=== PATIENT | female | born 1980 | race Asian ===

== ENCOUNTER 2024-01-30 17:41 | Emergency (ER) | payer OTHER ==
[2024-01-30 17:52] VITALS: TEMP 97.5; BMI 19.8
[2024-01-30] MEDS ORDERED: ACETAMINOPHEN INJECTION 100 ML ONE (18:25)
[2024-01-30] MEDS ORDERED: MAG HYDROX/AL HYDROX/SIMETH 30 ML UNIT-DOSE CUP ONE (18:25)
[2024-01-30] MEDS ORDERED: FAMOTIDINE 20 MG/50 ML IVPB 20 MG/50 ML MG IVPB ONE (18:25)
[2024-01-30] MEDS: MAG HYDROX/AL HYDROX/SIMETH 30 ML UNIT-DOSE CUP PO ONE (18:47)
[2024-01-30] MEDS: ACETAMINOPHEN 1000 MG/100 ML BAG IVPB ONE (18:47)
[2024-01-30 18:53] LABS: HCG,QUALITATIVE URINE Negative
[2024-01-30 18:53] LABS: HEMATOCRIT 40.1 % (32.4-45.2); HEMOGLOBIN 13.2 G/dL (10.7-15.3); MCHC 32.9 g/dl (32.0-36.0); MEAN CELL VOLUME 90.9 fl (80-96); MEAN PLT VOLUME 8.1 fl (7.5-11.1); PLATELET COUNT 279.2 10^3/uL (134-434); RBC 4.41 10^6/uL (3.60-5.2); RDW 13.7 % (11.6-15.6)
[2024-01-30 18:58] LABS: INR 0.94 (0.83-1.09); PROTHROMBIN TIME (PATIENT) 10.7 SEC (9.7-13.0)
[2024-01-30 19:01] LABS: ACTIVATED PTT 37.2 SECONDS (25.2-36.5)
[2024-01-30] MEDS: FAMOTIDINE 20 MG/50 ML IVPB 20 MG/50 ML MG IVPB ONE (19:02)
[2024-01-30 19:07] LABS: ALBUMIN 4.4 g/dl (3.4-5.0); ALK PHOS 40 U/L (45-117); ANION GAP 5 mmol/L (4-13); BILIRUBIN,TOTAL 0.5 mg/dl (0.2-1); CALCIUM 9.6 mg/dl (8.5-10.1); CHLORIDE 103 mmol/L (98-107); CO2 29 mmol/L (21-32); CREATININE 0.9 mg/dl (0.6-1.3); GLUCOSE,RANDOM 81 mg/dl (74-106); MAGNESIUM 2.1 mg/dL (1.8-2.4); POTASSIUM 3.8 mmol/L (3.5-5.1); SGOT/AST 13 U/L (15-37); SGPT/ALT 7 U/L (7-52); SODIUM 137 mmol/L (136-145); TOT PROT 6.7 g/dl (6.4-8.2)
[2024-01-30 19:14] LABS: PLATELET ESTIMATE ADEQUATE
[2024-01-30 20:36] VITALS: BP 104/75; PULSE 78; RESP 16
== END 2024-01-30 21:05 | disposition home or self-care (01) ==
LOC: FER 17:41
PROC: 3E033GC Introduction of Other Therapeutic Substance into Peripheral Vein, Percutaneous Approach (ICD-10-PCS; principal; 2024-01-30)
PROC: 3E033NZ Introduction of Analgesics, Hypnotics, Sedatives into Peripheral Vein, Percutaneous Approach (ICD-10-PCS; 2024-01-30)
DX: R10.13 Epigastric pain (principal)
CPT/HCPCS: 36415; 71046-TC-FY; 80053; 81003; 83690; 83735; 84484; 84703; 85027; 85610; 85730; 93005; 99285-25; J0131